=== PATIENT | male | born 1970 | race Caucasian/White ===

== ENCOUNTER 2020-09-24 10:11 | Emergency (ER) | payer OTHER ==
[~2020-09-24 10:11] MED LIST: BACTRIM DS TAB1 EACH PO; CELEBREX100 MG PO; PYRIDIUM100 MG PO
[2020-09-24 10:55] LABS: HEMOGLOBIN 15.7 gm/dl (14.0-17.5); RED BLOOD COUNT 5.17 M/UL (4.20-5.50); WHITE BLOOD COUNT 10.8 K/UL (4.5-11.0)
[2020-09-24 11:29] LABS: BUN/CREATININE RATIO 21 (0-10)
[2020-09-24] MEDS ORDERED: CELEBREX100 MG PO (14:22)
[2020-09-24] MEDS ORDERED: PROAIR DIGIHAL90 MCG INH (14:22)
[2020-09-24] MEDS ORDERED: VIBRAMYCIN 100100 MG PO (14:22)
== END 2020-09-24 14:45 | disposition home or self-care (01) ==
LOC: ER1 10:11
PROVIDERS: Emergency Medicine
DX: J18.9 Pneumonia, unspecified organism (principal); M54.6 Pain in thoracic spine; F17.200 Nicotine dependence, unspecified, uncomplicated
CPT/HCPCS: 72128; 80053; 85025; 87040; 93005; 96374; 99284; J0696

== ENCOUNTER 2020-10-27 14:36 | Emergency (ER) | payer OTHER ==
[~2020-10-27 14:36] MED LIST changes: +PROAIR DIGIHAL90 MCG INH; +VIBRAMYCIN 100100 MG PO
[2020-10-28] MEDS ORDERED: BUPRENORPHIN-N1 EACH SL (01:15)
== END 2020-10-27 15:10 | disposition left against medical advice (07) ==
LOC: ER1 14:36
DX: Z53.21 Procedure and treatment not carried out due to patient leaving prior to being seen by health care provider (principal)

== ENCOUNTER 2020-10-27 17:27 | Observation (INO) | payer OTHER ==
[~2020-10-27] VITALS: Ht 172.7 cm; Wt 77.1 kg
[2020-10-27 18:10] LABS: HEMOGLOBIN 14.7 gm/dl (14.0-17.5); RED BLOOD COUNT 5.02 M/UL (4.20-5.50); WHITE BLOOD COUNT 10.9 K/UL (4.5-11.0)
[2020-10-27 20:38] LABS: BUN/CREATININE RATIO 20 (0-10)
[2020-10-28] MEDS ORDERED: BUPRENORPHIN-N1 EACH SL (01:15)
[2020-10-29 09:57] LABS: RED BLOOD COUNT 4.78 M/UL (4.20-5.50)
[2020-10-29 09:59] LABS: WHITE BLOOD COUNT 6.2 K/UL (4.5-11.0)
[2020-10-29 10:38] LABS: BUN/CREATININE RATIO 20 (0-10)
[2020-10-29 14:13] LABS: HEMOGLOBIN 13.8 gm/dl (14.0-17.5); RED BLOOD COUNT 4.74 M/UL (4.20-5.50); WHITE BLOOD COUNT 6.1 K/UL (4.5-11.0)
[2020-10-30 06:37] LABS: BUN/CREATININE RATIO 17 (0-10)
[2020-10-30 08:45] LABS: HEMOGLOBIN 13.7 gm/dl (14.0-17.5); RED BLOOD COUNT 4.68 M/UL (4.20-5.50); WHITE BLOOD COUNT 5.5 K/UL (4.5-11.0)
[2020-10-30] MEDS ORDERED: TYLENOL325 MG PO (12:54)
[2020-10-30] MEDS ORDERED: ELIQUIS 5 MG TAB5 MG PO (12:54)
== END 2020-10-30 17:58 | disposition home or self-care (01) ==
LOC: ER1 17:27 → CDU 23:28 → M/S 23:28
PROVIDERS: Emergency Medicine; Internal Medicine; Physician Assistant; ADMIT Internal Medicine
DX: I26.99 Other pulmonary embolism without acute cor pulmonale (principal); I82.431 Acute embolism and thrombosis of right popliteal vein; I82.441 Acute embolism and thrombosis of right tibial vein; F11.20 Opioid dependence, uncomplicated; F17.200 Nicotine dependence, unspecified, uncomplicated; Z20.822 Contact with and (suspected) exposure to COVID-19; Z79.899 Other long term (current) drug therapy; Z87.81 Personal history of (healed) traumatic fracture
CPT/HCPCS: 36415; 80053; 82550; 82553; 82962; 84484; 85025; 85379; 93005; 93971; 99285; G0378; J1650; J1885; Q9967; U0002